=== PATIENT | female | born 1955 | race Two or more races ===

== ENCOUNTER 2017-08-07 09:28 | Day surgery (SDC) | payer OTHER ==
[~2017-08-07 09:28] MED LIST: B-121000 MCG PO; LOSARTAN POTASS50 MG PO; PAXIL20 MG PO; RESTORIL30 M1 PO; SYMBICORT 16010.2 GM IH; VENTOLIN HFA18 GM IH; VITAMIN D33000 UNIT PO
== END 2017-08-07 16:00 | disposition home or self-care (01) ==
LOC: CIR.AMB 09:28
DX: S52.122A Displaced fracture of head of left radius, initial encounter for closed fracture (principal); S53.32XA Traumatic rupture of left ulnar collateral ligament, initial encounter

== ENCOUNTER 2017-10-16 06:41 | Day surgery (SDC) | payer OTHER | END 2017-10-16 14:45 | disposition home or self-care (01) | LOC: CIR.AMB 06:41 | DX: M75.121 Complete rotator cuff tear or rupture of right shoulder, not specified as traumatic (principal) ==

== ENCOUNTER 2018-05-07 09:36 | Day surgery (SDC) | payer OTHER | END 2018-05-07 16:35 | disposition home or self-care (01) | LOC: CIR.AMB 09:36 | DX: G56.22 Lesion of ulnar nerve, left upper limb (principal) ==